=== PATIENT | male | born 1945 | race Caucasian/White ===

== ENCOUNTER → 2017-06-18 | Outpatient (CLI) | payer BC ==
[~2017-06-18] MED LIST: ASPI325T4 PO; IBUP-1050 PO; MULT-506 PO
== END | disposition home or self-care (01) ==
LOC: C.LABPBG 08:23
PROVIDERS: ATTEND Urology
DX: C61 Malignant neoplasm of prostate (principal); C67.9 Malignant neoplasm of bladder, unspecified

== ENCOUNTER → 2017-07-04 | Outpatient (CLI) | payer BC | END | disposition home or self-care (01) | LOC: C.PATHSPEC 10:56 | PROVIDERS: ATTEND Urology | DX: C61 Malignant neoplasm of prostate (principal) ==

== ENCOUNTER 2017-12-20 09:02 | Emergency (ER) | payer BC ==
[~2017-12-20] VITALS: Ht 175.3 cm; Wt 81.2 kg
[2017-12-20 09:04] VITALS: TEMP 36.8; Ht 175.3 cm; Wt 81.2 kg
--- NOTE | 2017-12-20 10:51 | DIAGNOSTIC IMAGING REPORT ---
L-SPINE MIN 4 VIEWS ROUTINE CLINICAL HISTORY: fall 2 days ago low back pain COMPARISON STUDY: No previous studies for comparison. FINDINGS: There is a transitional vertebra present. No fractures or subluxations are visualized. There are degenerative changes most pronounced within the lower thoracic spine. IMPRESSION: Mild degenerative change. No fractures or subluxations identified. Electronically signed by: Pastor Holder M.D. 12/20/2017 10:50 AM Dictated Date/Time: 12/20/2017 10:49 AM
--- NOTE | 2017-12-20 10:54 | DIAGNOSTIC IMAGING REPORT ---
L RIBS UNILATERAL WITH PA CHEST CLINICAL HISTORY: pain over L ribs 8-10 after fall; no crepitus COMPARISON STUDY: No previous studies for comparison. FINDINGS: The heart is normal in size. There is aortic tortuosity/ectasia. There is no pneumothorax. There are bibasal atelectatic changes. There are fractures of the left eighth ninth and 10th ribs. IMPRESSION: 1. Acute fractures of the left eighth, ninth, and 10th ribs 2. No evidence of pneumothorax. Electronically signed by: Pastor Holder M.D. 12/20/2017 10:53 AM Dictated Date/Time: 12/20/2017 10:50 AM
[2017-12-20] MEDS ORDERED: ACET-749 PO (12:45)
[2017-12-20 12:47] VITALS: BP 170/96; PULSE 73; O2SAT 92
--- NOTE | 2017-12-20 14:44 | EMERGENCY ROOM VISIT NOTE ---
History Report prepared by Sukhjinder: Carola Summers Under the Supervision of: Dr. Kee Cohen M.D. First contact with patient: 09:50 Chief Complaint: BACK INJURY Stated Complaint: L BACK INJURY,FELL History of Present Illness The patient is a 72 year old male who presents to the Emergency Room with complaints of an episode of fall 2 days ago. The patient slipped and fell on ice while going down 3 steps. He has had back pain since the fall. He is able to stand. He has had difficulty laying down. He denies any other injury or pain elsewhere. Source of History: patient Onset: 2 days ago Position: other (global) Quality: other (fall) Timing: other (episodic) Associated Symptoms: + back pain Review of Systems See HPI for pertinent positives and negatives. A total of ten systems were reviewed and were otherwise negative. Past Medical & Surgical Medical Problems: (1) Back pain (2) Bladder cancer (3) Diverticulitis Family History Cancer Heart disease Social History Smoking Status: Former Smoker Alcohol Use: none Drug Use: none Marital Status: Occupation Status: retired Current/Historical Medications Scheduled Aspirin (Aspirin), 162.5 MG PO QPM Ibuprofen (Advil), 400 MG PO PRN Multivitamin (Multivitamin), 1 TAB PO QAM Scheduled PRN Acetaminophen/Codeine (Tylenol W/Codeine #3), 1 TABS PO TID PRN for Pain Allergies Coded Allergies: No Known Allergies (Unverified , 12/20/17) Physical Exam Vital Signs Date Time Temp Pulse Resp B/P (MAP) Pulse Ox O2 Delivery O2 Flow Rate FiO2 12/20/17 12:47 73 18 170/96 92 Room Air 12/20/17 11:26 69 17 138/85 97 Room Air 12/20/17 09:04 36.8 79 17 158/82 97 Room Air Physical Exam Physical Exam GENERAL: He is oriented to person, place, and time. He appears well-developed and well-nourished. He does not appear distressed. ____ HENT: Exam performed. Head: Normocephalic and atraumatic. Right Ear: External ear normal. No mastoid tenderness. Left Ear: External ear normal. No mastoid tenderness. Mouth/Throat: The oropharynx is clear and moist. No trismus in the jaw. No dental abscesses or uvula swelling. No oropharyngeal exudate or tonsillar abscesses. ____ EYES: Conjunctivae and EOM are normal. Pupils are equal, round, and reactive to light. Right eye exhibits no discharge. Left eye exhibits no discharge. No scleral icterus. ____ NECK: Normal range of motion. Neck supple. No JVD present. No spinous process tenderness present. No carotid bruit present. No rigidity. No tracheal deviation and normal range of motion present. No Brudzinski's sign and no Kernig 's sign noted. ____ CV: Normal rate, regular rhythm, normal heart sounds and intact distal pulses. There is no peripheral edema. Palpable radial pulses bue. ____ PULM/CHEST: Effort normal and breath sounds normal. No respiratory distress. No stridor. He has no wheezes. He has no rales. Chest Wall: Pain on palpation of the left lateral ribs 8-10, no crepitus. ABD: The abdomen is soft. Bowel sounds are normal. He has no distension. No mass is present. There is no tenderness. There is no rebound, no guarding, no Bailon's sign and no tenderness at McBurney's point. Rovsig negative MUSC/SKEL: Normal range of motion. There is no peripheral edema, tenderness or deformity. No C, T, or L spine tenderness. Left lumbar paraspinal tenderness. _ LYMPH: No cervical adenopathy. ____ NEURO: He is alert and oriented to person, place, and time. He has normal strength. No cranial nerve deficit or sensory deficit. Coordination and gait normal. GCS eye subscore is 4. GCS verbal subscore is 5. GCS motor subscore is 6. cerbellar tests wnl. ____ SKIN: Skin is warm and dry. He is not diaphoretic. ____ PSYCH: He has a normal mood and affect. His behavior is normal. Judgment and thought content normal. ____ Medical Decision & Procedures ER Provider Diagnostic Interpretation: Xray results as stated below per my and radiologist interpretation: L-SPINE MIN 4 VIEWS ROUTINE CLINICAL HISTORY: fall 2 days ago low back pain COMPARISON STUDY: No previous studies for comparison. FINDINGS: There is a transitional vertebra present. No fractures or subluxations are visualized. There are degenerative changes most pronounced within the lower thoracic spine. IMPRESSION: Mild degenerative change. No fractures or subluxations identified. Electronically signed by: Pastor Holder M.D. 12/20/2017 10:50 AM Dictated Date/Time: 12/20/2017 10:49 AM L RIBS UNILATERAL WITH PA CHEST CLINICAL HISTORY: pain over L ribs 8-10 after fall; no crepitus COMPARISON STUDY: No previous studies for comparison. FINDINGS: The heart is normal in size. There is aortic tortuosity/ectasia. There is no pneumothorax. There are bibasal atelectatic changes. There are fractures of the left eighth ninth and 10th ribs. IMPRESSION: 1. Acute fractures of the left eighth, ninth, and 10th ribs 2. No evidence of pneumothorax. Electronically signed by: Pastor Holder M.D. 12/20/2017 10:53 AM Dictated Date/Time: 12/20/2017 10:50 AM ED Course 1004: The patient was evaluated in room B12B. A complete history and physical exam was performed. 1230: Chest x-ray shows acute rib fracture left side of the eighth, ninth, 10th ribs. No evidence of pneumothorax or flail chest. FAST exam performed. Views were obtained from the subxyphoid, hepatorenal, splenorenal, and suprapubic windows. No free fluid in the abdomen. No pericardial tamponade. Negative FAST. Patient will be discharged with analgesia and incentive spirometer. Incentive spirometry instructions and training given by nursing. DISCHARGE - Plan of care discussed with patient and questions answered. The patient was given both verbal and printed discharge instructions. The patient verbalized understanding and ability to comply. The patient is to seek outpatient follow up as noted in the discharge instructions. The patient verbalized understanding and ability to comply. The patient is discharged in stable condition. The patient was instructed to return for worsening symptoms. Medical Decision Vss. Xray shows left sided rib fractures. No evidence of flail chest. No pneumothorax. FAST exam negative. Pt dc with analgesia and incentive spirometer with instructions on how to use incentive spirometer. DISCHARGE - Plan of care discussed with patient and questions answered. The patient was given both verbal and printed discharge instructions. The patient verbalized understanding and ability to comply. The patient is to seek outpatient follow up as noted in the discharge instructions. The patient verbalized understanding and ability to comply. The patient is discharged in stable condition. The patient was instructed to return for worsening symptoms. Medication Reconcilliation Current Medication List: was personally reviewed by me Blood Pressure Screening Patient's blood pressure: Elevated blood pressure Blood pressure disposition: Elevated BP felt to be situational Impression Primary Impression: Multiple rib fractures Scribe Attestation The scribe's documentation has been prepared under my direction and personally reviewed by me in its entirety. I confirm that the note above accurately reflects all work, treatment, procedures, and medical decision making performed by me. The chart was completed utilizing [employer] Speech voice recognition software. Grammatical errors, random word insertions, pronoun errors, and incomplete sentences are an occasional consequence of this system due to software limitations, ambient noise, and hardware issues. Any formal questions or concerns about the content, text, or information contained within the body of this dictation should be directly addressed to the physician for clarification. Departure Information Dispostion Home / Self-Care Prescriptions Acetaminophen/Codeine (Tylenol W/Codeine #3) 300 Mg/30 Mg Tab 1 TABS PO TID Y for Pain, #21 TAB Prov: Kee Cohen M.D. 12/20/17 Referrals Kimberlee Bolden, DO Forms HOME CARE DOCUMENTATION FORM, IMPORTANT VISIT INFORMATION Patient Instructions Fx Rib, Incentive Spirometer Pr, [facility] Additional Instructions Use incentive spirometer as indicated. Problem Qualifiers Primary Impression: Multiple rib fractures Encounter type: initial encounter Fracture type: closed Laterality: left Qualified Codes: S22.42XA - Multiple fractures of ribs, left side, initial encounter for closed fracture
[2017-12-20] MEDS ORDERED: MULT-506 PO (15:15)
[2017-12-20] MEDS ORDERED: IBUP-1050 PO (15:16)
[2017-12-20] MEDS ORDERED: ASPI325T4 PO (21:58)
== END 2017-12-20 13:02 | disposition home or self-care (01) ==
LOC: C.EDB 09:03
DX: S22.42XA Multiple fractures of ribs, left side, initial encounter for closed fracture (principal); W00.1XXA Fall from stairs and steps due to ice and snow, initial encounter; Z87.891 Personal history of nicotine dependence; Z79.82 Long term (current) use of aspirin

== ENCOUNTER → 2018-06-24 | Outpatient (CLI) | payer BC | END | disposition home or self-care (01) | LOC: C.LAB 09:54 | PROVIDERS: ATTEND Urology | DX: C61 Malignant neoplasm of prostate (principal) ==